=== PATIENT | female | born 1960 | race Caucasian/White ===

== ENCOUNTER 2022-01-19 16:47 | Observation (INO) ==
[2022-01-19] MEDS ORDERED: Acetaminophen 325 MG TABLET PO PRN (18:53)
[2022-01-19] MEDS ORDERED: MOM Conc 10 ML UD.LIQ PO PRN (18:53)
[2022-01-19] MEDS ORDERED: Ondansetron 4 MG/2 ML VIAL IVP PRN (18:53)
[2022-01-19] MEDS ORDERED: Naloxone 0.4 MG/ML INJ IVP PRN (18:53)
[2022-01-19] MEDS ORDERED: Mag Hydrox/Al Hydrox/Simeth 30 ML UDC PO PRN (18:53)
[2022-01-19] MEDS ORDERED: Isovue-370 500 ML BOTTLE IVP ONE (20:05)
[2022-01-19] MEDS: *HR* Heparin 5,000 UNIT/ML VIAL SQ SCH (21:25)
[2022-01-19] MEDS ORDERED: Perflutren Lipid Microsphere 1.3 ML in 0.9 % Sodium Chloride 8.7 ML IVP PRN (21:54)
[2022-01-19] MEDS: Levalbuterol Neb 1.25 MG/3 ML IH SCH (23:41)
[2022-01-20] MEDS: Levalbuterol Neb 1.25 MG/3 ML IH SCH ×4 (04:07→20:56)
[2022-01-20] MEDS: *HR* Heparin 5,000 UNIT/ML VIAL SQ SCH ×3 (05:30→22:00)
[2022-01-20] MEDS ORDERED: Perflutren Lipid Microsphere 1.3 ML in 0.9 % Sodium Chloride 8.7 ML IVP PRN (07:52)
[2022-01-20 08:02] LABS: Hematocrit 38.1 % (35.3-44.9); Hemoglobin 12.3 g/dL (11.5-15.4); Mean Corpuscular HGB Conc 32.3 g/dL (31.6-35.5); Mean Corpuscular Hemoglobin 29.2 pg (28.0-33.3); Mean Corpuscular Volume 90.5 fL (83.0-100.0); Mean Platelet Volume 10.5 fL (9.4-12.4); Platelet Count 247 K/mcL (140-400); Red Blood Count 4.21 M/mcL (3.82-4.97); Red Cell Distribution Width 13.9 % (11.5-14.5); White Blood Count 10.7 K/mcL (4.3-11.1)
[2022-01-20 08:10] LABS: BUN/Creatinine Ratio 16 (6-26); Blood Urea Nitrogen 15 mg/dL (6-20); Calcium 8.4 mg/dL (8.6-10.3); Carbon Dioxide 22 mEq/L (23-29); Chloride 108 mEq/L (98-107); Glucose 135 mg/dL (70-105); Magnesium 1.9 mg/dL (1.6-2.6); Osmolality,Calculated 293 (280-300); Potassium 3.6 mEq/L (3.5-5.1); Sodium 140 mEq/L (136-145); eGFR For African Americans > 60 (> 60); eGFR For Non-African Americans > 60 (> 60)
[2022-01-20 08:51] LABS: Basophils % 0.4 %; Eosinophils # 0.2 K/mcL (0.0-0.6); Hematocrit 39.8 % (35.3-44.9); Hemoglobin 12.6 g/dL (11.5-15.4); Immature Granulocytes % 0.3 % (0-4); Lymphocytes # 4.2 K/mcL (0.6-4.6); Lymphocytes % 39.3 %; Mean Corpuscular HGB Conc 31.7 g/dL (31.6-35.5); Mean Corpuscular Hemoglobin 28.4 pg (28.0-33.3); Mean Corpuscular Volume 89.6 fL (83.0-100.0); Mean Platelet Volume 10.3 fL (9.4-12.4); Monocytes # 0.8 K/mcL (0.0-1.3); Monocytes % 7.3 %; Neutrophils # 5.4 K/mcL (1.6-8.9); Platelet Count 238 K/mcL (140-400); Red Blood Count 4.44 M/mcL (3.82-4.97); Red Cell Distribution Width 13.7 % (11.5-14.5); Segmented Neutrophils % 50.7 %; White Blood Count 10.6 K/mcL (4.3-11.1)
[2022-01-20 09:08] LABS: BUN/Creatinine Ratio 15 (6-26); Blood Urea Nitrogen 15 mg/dL (6-20); Calcium 8.6 mg/dL (8.6-10.3); Carbon Dioxide 24 mEq/L (23-29); Chloride 108 mEq/L (98-107); Glucose 123 mg/dL (70-105); Osmolality,Calculated 290 (280-300); Phosphorous 3.7 mg/dL (2.7-4.5); Potassium 3.8 mEq/L (3.5-5.1); Sodium 139 mEq/L (136-145); eGFR For African Americans > 60 (> 60); eGFR For Non-African Americans 59 (> 60)
[2022-01-20 09:08] LABS: Estimated Average Glucose 140 mg/dl; Hemoglobin A1C 6.5 %
[2022-01-20] MEDS: Aspirin Enteric Coated 81 MG Tablet PO SCH (10:47)
[2022-01-20] MEDS: Famotidine 20 MG TABLET PO SCH ×2 (10:47→21:57)
[2022-01-20] MEDS ORDERED: *HR* Dextrose 50 % in Water (Syg) 50 ML SYRINGE IVP PRN (13:02)
[2022-01-20] MEDS ORDERED: D5% in Water 1,000 ML IVC PRN (13:02)
[2022-01-20] MEDS ORDERED: Dextrose 4 GM Chewable Tablets PO PRN ×2 (13:02)
[2022-01-20] MEDS: Insulin LISPRO 300 UNITS/3 ML VIAL SUBQ SCH ×2 (15:39→19:21)
[2022-01-20] MEDS ORDERED: NON-FORMULARY MEDICATION 1 EACH EACH (Famotidine [Pepcid] 40 MG Tablet) PO SCH (18:00)
[2022-01-20] MEDS ORDERED: BREXPIPRAZOLE 0.25 MG PO SCH (18:00)
[2022-01-20] MEDS ORDERED: amLODIPine 5 MG TABLET PO SCH (18:00)
[2022-01-20] MEDS: Budesonide/Formoterol 160/4.5 1 PUFF INH IH SCH (20:56)
[2022-01-20] MEDS ORDERED: FLUoxetine 20 MG CAPSULE PO SCH (21:00)
[2022-01-20] MEDS ORDERED: traZODone 50 MG TABLET PO SCH (21:00)
[2022-01-20] MEDS: levETIRAcetam 250 MG TABLET PO SCH ×2 (21:52→22:07)
[2022-01-20] MEDS: Topiramate 25 MG TABLET PO SCH (21:55)
[2022-01-21] MEDS: Levalbuterol Neb 1.25 MG/3 ML IH SCH ×3 (03:36→15:11)
[2022-01-21] MEDS: *HR* Heparin 5,000 UNIT/ML VIAL SQ SCH ×2 (05:41→14:05)
[2022-01-21] MEDS: Budesonide/Formoterol 160/4.5 1 PUFF INH IH SCH (07:48)
[2022-01-21] MEDS ORDERED: Ezetimibe [Zetia] 10 MG Tablet PO SCH (09:00)
[2022-01-21] MEDS ORDERED: lisinopriL 20 MG TABLET PO SCH (09:00)
[2022-01-21] MEDS ORDERED: Topiramate [Trokendi Xr] 100 MG Cap.Er.24h PO SCH (09:00)
[2022-01-21] MEDS: Insulin LISPRO 300 UNITS/3 ML VIAL SUBQ SCH ×2 (09:26→11:58)
[2022-01-21] MEDS: Aspirin Enteric Coated 81 MG Tablet PO SCH (09:35)
[2022-01-21] MEDS: Famotidine 20 MG TABLET PO SCH (09:35)
[2022-01-21] MEDS: Topiramate 25 MG TABLET PO SCH (09:35)
[2022-01-21] MEDS: levETIRAcetam 250 MG TABLET PO SCH ×2 (09:35)
[2022-01-21 14:36] VITALS: BP 127/81; PULSE 63; TEMP 97.6
[2022-01-21 15:18] VITALS: O2SAT 97
== END 2022-01-21 17:56 | disposition home or self-care (01) ==
LOC: 3BNU → SUATTDRO 18:50
PROVIDERS: ADMIT Internal Medicine; ATTEND Internal Medicine